=== PATIENT | male | born 1990 | race African-American/Black ===

== ENCOUNTER 2020-04-04 15:28 | Emergency (ER) | payer OTHER, SELFPAY ==
[2020-04-04 15:33] VITALS: BP 131/64; PULSE 86; RESP 18; TEMP 36.9; O2SAT 96; BMI 36.9
--- NOTE | 2020-04-04 15:39 | DI.RAD.S_ITS ---
PROCEDURE: XR KNEE RT 1TO2V INDICATIONS: twisted knee TECHNIQUE: 2 views of the knee were acquired. COMPARISON: None. FINDINGS: Bones: No fractures or dislocations. No suspicious bony lesions. Soft tissues: No joint effusion. No suspicious soft tissue calcifications. IMPRESSION: Right knee without acute radiographic abnormalities. Dictated by: Curtis Jacob M.D. on 04/04/2020 at 15:48 Approved by: Curtis Jacob M.D. on 04/04/2020 at 15:50
[2020-04-04] MEDS: KETOROLAC 60 MG/2 ML VIAL IM (16:36)
--- NOTE | 2020-04-04 19:32 | ED_ITS ---
HPI - Extremity Injury (Lower) <NIYAH Davison - Last Filed: 04/04/20 20:24> General Chief Complaint: Extremity Injury, Lower Stated Complaint: rt knee injury Time Seen by Provider: 04/04/20 16:16 Source: patient Mode of arrival: Wheelchair Limitations: no limitations History of Present Illness HPI Narrative: The patient is a 29-year-old male who presents with a chief complaint of right knee injury. 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 He has not taken anything for pain or applied ice. He states that he can ambulate but it is painful. He denies any falls, just states that it was a twist. Denies any previous injury to this knee. Related Data Previous Rx's Medication Instructions Recorded ketorolac 10 mg PO TID PRN #14 tab 04/04/20 Allergies Allergy/AdvReac Type Severity Reaction Status Date / Time No Known Drug Allergies Allergy Verified 04/04/20 15:33 Review of Systems <NIYAH Davison - Last Filed: 04/04/20 20:24> Review of Systems Narrative: GENERAL: Denies chills, fatigue, malaise, fever, sweats. HEENT: Denies sinus pain, ear pain, sore throat, difficulty swallowing, dizziness. RESPIRATORY: Denies dyspnea, cough, wheezing, hemoptysis, sputum. CARDIOVASCULAR: Denies chest pain, palpitations, orthopnea, edema, GASTROINTESTINAL: Denies nausea, vomiting, abdominal pain, diarrhea, con stipation, melena. : Denies dysuria, frequency, incontinence, hematuria, urinary retention. MUSCULOSKELETAL see HPI SKIN: Denies rash, skin lesions, or other NEUROLOGIC: Denies weakness, headache, numbness, change in speech, confusion, seizures, incoordination. PSYCHIATRIC: No concerning psychosocial issues. 12 point review of systems is negative except for those stated above Patient History <NIYAH Davison - Last Filed: 04/04/20 20:24> tobacco type: vaping alcohol intake frequency: 0-2 drinks per day Substance Use Type: does not use Exam <NIYAH Davison Last Filed: 04/04/20 20:24> Narrative Exam Narrative: GENERAL: This is a well-nourished, well-developed patient, in no acute distress HEAD: Atraumatic. Normocephalic. No temporal or scalp tenderness. EYES: Pupils equal round and reactive. Extraocular motions intact. No scleral icterus. No injection or drainage. ENT: Nose without bleeding, purulent drainage or septal hematoma. Throat without erythema, tonsillar hypertrophy or exudate. Uvula midline. Airway patent. NECK: Trachea midline. No JVD or lymphadenopathy. Supple, nontender, no meningeal signs. CARDIOVASCULAR: Regular rate and rhythm RESPIRATORY: No cough. No increased respiratory effort. No accessory muscle use EXTREMITIES: General pain to palpation right knee. Positive pedal pulses right foot. Negative anterior posterior drawer, negative varus, negative valgus positive for pain on Sania's. Able to lift leg up fully. Able to flex to 90?. BACK: Nontender without deformity or crepitance. No flank tenderness. NEURO: AOx3. SKIN: No rash or erythema on visible skin. Initial Vital Signs Initial Vital Signs: Vital Signs Temperature 98.5 F 04/04/20 15:33 Pulse Rate 86 04/04/20 15:33 Respiratory Rate 18 04/04/20 15:33 Blood Pressure 131/64 04/04/20 15:33 Pulse Oximetry 96 04/04/20 15:33 <Ed Fraser MD - Last Filed: 04/07/20 19:00> Initial Vital Signs Initial Vital Signs: Vital Signs Temperature 98.5 F 04/04/20 15:33 Pulse Rate 86 04/04/20 15:33 Respiratory Rate 18 04/04/20 15:33 Blood Pressure 131/64 04/04/20 15:33 Pulse Oximetry 96 04/04/20 15:33 Scores <NIYAH Davison - Last Filed: 04/04/20 20:24> GCS [place] coma scale eye opening: Spontaneous [place] coma scale verbal response: Orientated [place] coma scale motor response: Obey commands [place] coma scale total score: 15 Course <NIYAH Davison - Last Filed: 04/04/20 20:24> Orders Ordered: Discontinued Medications Ketorolac Tromethamine (Toradol) 60 mg IM NOW ONE Stop: 04/04/20 16:23 Last Admin: 04/04/20 16:36 Dose: 60 mg Documented by: CURTIS Vital Signs Vital signs: Vital Signs - 8 hr 04/04/20 15:33 04/04/20 20:17 Temperature 98.5 F Pulse Rate 86 78 Respiratory Rate 18 18 Blood Pressure 131/64 133/66 Pulse Oximetry 96 97 <Ed Fraser MD - Last Filed: 04/07/20 19:00> Orders Ordered: Discontinued Medications Ketorolac Tromethamine (Toradol) 60 mg IM NOW ONE Stop: 04/04/20 16:23 Last Admin: 04/04/20 16:36 Dose: 60 mg Documented by: CURTIS Vital Signs Vital signs: Vital Signs - 8 hr 04/04/20 15:33 04/04/20 20:17 Temperature 98.5 F Pulse Rate 86 78 Respiratory Rate 18 18 Blood Pressure 131/64 133/66 Pulse Oximetry 96 97 MDM - Extremity Injury (Lower) <NIYAH Davison - Last Filed: 04/04/20 20:24> Imaging Data Extremity x-ray #1: Radiologist's Impression: [address] [place] [id number] XRay Report Signed Patient: Nick Alvarez KMR#: [id number] : 1990Acct:[id number] Age/Sex: 29 / MDate of Service: 04/04/20 Loc: ED Accession Number: [id number] Procedure: XR knee RT 1to2V Ordering Provider: Ed Fraser MD PROCEDURE: XR KNEE RT 1TO2V INDICATIONS: twisted knee TECHNIQUE: 2 views of the knee were acquired. COMPARISON: None. FINDINGS: Bones: No fractures or dislocations. No suspicious bony lesions. Soft tissues: No joint effusion. No suspicious soft tissue calcifications. IMPRESSION: Right knee without acute radiographic abnormalities. Dictated by: Curtis Jacob M.D. on 04/04/2020 at 15:48 Approved by: Curtis Jacob M.D. on 04/04/2020 at 15:50 [facility] Narrative Medical decision making narrative: The patient is a 29-year-old male who presents with a chief complaint of right knee pain after twisting it during work. He is able to ambulate, that is painful to do so. X-ray is no acute abnormalities. The patient is neurovascularly intact. He feels slightly improved after ice and Toradol. He states he does not have a light duty option at work, so he was given several days off of work to rest ice compression elevation. Prescription of Toradol given. Discussed taking with food. Encouraged follow-up with primary care provider or worker's comp. Patient has no questions or concerns upon discharge and states understanding return precautions as well as follow-up care. Discharge Plan Departure Patient Disposition: Home Clinical Impression: Right knee sprain Qualifiers: Encounter type: initial encounter Involved ligament of knee: unspecified ligament Qualified Code(s): S83.91XA - Sprain of unspecified site of right knee, initial encounter Discharge Date/Time: 04/04/20 20:10 Instructions: DI for Knee Sprain, How To Perform RICE (Rest, Ice, Compress, Edwina vate), DI for Knee Pain, How to Apply an Elastic Wrap on Knee Activity Restrictions/Additional Instructions: As I discussed, your x-ray shows no acute fracture. This does not rule out a soft tissue injury such as a ligament or tendon injury. It is important that you follow up with primary care provider, especially if worsening or no improvement. There can be fractures that did not show up on initial x-ray. Please follow-up with workers comps/ labor and industries. You may benefit from further exam, physical therapy, or other imaging. I s have given her prescription of ketorolac or Toradol, which is for pain. I have given you a prescription of Toradol. This is an NSAID. Do not combine it with other NSAIDs such as Aleve or ibuprofen. I suggest taking it with some food, as it can irritate your stomach. Please come back to emergency department for any acute concerns Prescriptions: New ketorolac 10 mg tablet 10 mg PO TID PRN (Reason: pain) Qty: 14 RF: 0 Stand Alone Forms: Work Release Note <Ed Fraser MD - Last Filed: 04/07/20 19:00> Cosign ED Attending Cosignature Attestation: I was immediately available in the department for consultation. This documentation has been reviewed and I agree with assessment and plan. Supervised by Ed Fraser MD
[2020-04-04 20:17] VITALS: BP 133/66; PULSE 78; RESP 18; O2SAT 97
== END 2020-04-04 20:10 | disposition home or self-care (01) ==
PROVIDERS: Emergency Provider Nurse Practitioner Family
DX: S83.91XA Sprain of unspecified site of right knee, initial encounter (principal); W18.40XA Slipping, tripping and stumbling without falling, unspecified, initial encounter; Y99.0 Civilian activity done for income or pay
CPT/HCPCS: 73560; 96372; 99283; 99284; J1885